=== PATIENT | female | born 1995 | race Two or more races ===

== ENCOUNTER 2018-04-04 17:00 | Emergency (ER) | payer OTHER ==
--- NOTE | 2018-04-04 17:17 | PDOC ---
Rapid Medical Evaluation Chief Complaint: Abscess Boil Time Seen by Provider: 04/04/18 17:15 Medical Evaluation: 04/04/18 17:15 have performed a brief in-person evaluation of this patient. The patient presents with a chief complaint of:abscess to right thigh, Pertinent physical exam findings: pale, tender right upper innner thigh I have ordered the following: nothing The patient will proceed to the ED for further evaluation.
[2018-04-04 17:18] VITALS: BP 122/58; PULSE 60; TEMP 98.4; BMI 30.9
--- NOTE | 2018-04-04 18:17 | PDOC ---
History of Present Illness - General Chief Complaint: Abscess Boil Stated Complaint: Abscess Boil Time Seen by Provider: 04/04/18 17:15 History Source: Patient Exam Limitations: Clinical Condition - History of Present Illness Initial Comments: 04/04/18 18:10 Patient with no significant past medication he present with complaint of recurrent abscesses on different part of the body for 7 months now and now with three-day history of abscess to right thigh area. Patient's was seen in [facility] for symptoms and discharged home on amoxicillin antibiotics. Patient reported right thigh abscess draining. Patient has not seen dermatology for her symptoms or previous abscesses. Patient denies fever, chills. Patient is sexually active with one partner. Patient denies any other symptoms. Timing/Duration: other (3 days) Past History - Past Medical History Allergies/Adverse Reactions: Allergies Allergy/AdvReac Type Severity Reaction Status Date / Time No Known Allergies Allergy Verified 04/04/18 17:17 Home Medications: Ambulatory Orders Cephalexin Monohydrate [Keflex -] 500 mg PO BID 7 Days #14 capsule 04/04/18 Sulfamethoxazole/Trimethoprim [Bactrim Ds -] 1 tab PO BID #14 tablet 04/04/18 COPD: No - Surgical History Appendectomy: No - Immunization History Immunization Up to Date: No - Suicide/Smoking/Psychosocial Hx Smoking History: Never smoked Have you smoked in the past 12 months: No Information on smoking cessation initiated: No Hx Alcohol Use: No Drug/Substance Use Hx: No Review of Systems - Review of Systems Able to Perform ROS?: Yes Is the patient limited Occitan proficient: No Constitutional: No: Chills, Fever HEENTM: No: Symptoms Reported Respiratory: No: Symptoms reported Cardiac (ROS): No: Symptoms Reported ABD/GI: No: Nausea, Vomiting Musculoskeletal: No: Muscle Pain Integumentary: Yes: Lumps (abscess to right inner thigh) All Other Systems: Reviewed and Negative *Physical Exam - Vital Signs Last Vital Signs Temp Pulse Resp BP Pulse Ox 98.4 F 60 18 122/58 L 100 04/04/18 17:15 18 17:15 04/04/18 17:15 04/04/18 17:15 04/04/18 17:15 - Physical Exam Comments: 04/04/18 18:12 GENERAL: Well developed, well nourished. Awake and alert. No acute distress. CARDIOVASCULAR: Regular rate and rhythm. No murmurs, rubs, or gallops. Distal pulses are 2+ and symmetric. PULMONARY: No evidence of respiratory distress. Lungs clear to auscultation bilaterally. No wheezing, rales or rhonchi. ABDOMINAL: Soft. Non-tender. Non-distended. No rebound or guarding. No organomegaly. Normoactive bowel sounds. . SKIN: small 3cm draining abscess to right inner mid-thigh area with mild swelling and erythema. purulent drainage from wound site Warm and dry. Normal capillary refill. No rashes. No jaundice. NEUROLOGICAL: Alert, awake, appropriate. Gait is normal without ataxia. PSYCHIATRIC: Cooperative. Good eye contact. Appropriate mood General Appearance: Yes: Nourished, Appropriately Dressed. No: Apparent Distress Moderate Sedation - Procedure Monitoring Vital Signs: Procedure Monitoring Vital Signs Temperature 98.4 F 04/04/18 17:15 Pulse Rate 60 04/04/18 17:15 Respiratory Rate 18 04/04/18 17:15 Blood Pressure 122/58 L 04/04/18 17:15 O2 Sat by Pulse Oximetry (%) 100 04/04/18 17:15 Medical Decision Making - Medical Decision Making 04/04/18 18:15 Patient with no significant past medication he present with complaint of right thigh pain and abscess. Patient with history of recurrent abscesses axilla patient be treated and intermittent [place]. Exam significant for 3 cm draining abscess to right inner thigh area with mild surrounding erythema. Wound culture of pertinent discharge from abscess obtained. Abscess cleaned with Betadine. Bacitracin applied to abscess in abscess covered with 4 x 4 gauze was pressure dressing. Blood glucose fingerstick ordered and HIV test ordered as per patient request. 04/04/18 19:38 fingerstick glucose 79. HIV neg. 04/06/18 08:34 *DC/Admit/Observation/Transfer Diagnosis at time of Disposition: Abscess of right thigh - Discharge Dispostion Disposition: HOME Condition at time of disposition: Stable Decision to Admit order: No - Prescriptions Prescriptions: Cephalexin Monohydrate [Keflex -] 500 mg PO BID 7 Days #14 capsule Sulfamethoxazole/Trimethoprim [Bactrim Ds -] 1 tab PO BID #14 tablet - Referrals Referrals: Camilo Flores MD [Non Staff, Medical] - - Patient Instructions Printed Discharge Instructions: DI for Incision and Drainage of a Skin Abscess Additional Instructions: Take medication as prescribed for Abscess. apply warm compress to area 2-3times/ day for 5-10mins. Follow-up with referred dermatology - Post Discharge Activity
== END 2018-04-04 20:42 | disposition home or self-care (01) ==
LOC: JERFT 17:00
DX: L02.415 Cutaneous abscess of right lower limb (principal)
CPT/HCPCS: 36415; 82962; 87070; 87186; 87205; 87389; 99281-25

== ENCOUNTER 2018-04-14 11:12 | Emergency (ER) | payer OTHER ==
[2018-04-14 11:32] VITALS: BP 125/72; PULSE 70; TEMP 97.9; BMI 30.9
--- NOTE | 2018-04-14 12:20 | PDOC ---
History of Present Illness - General Chief Complaint: Abscess Boil Stated Complaint: REVISIT, FOLLOW UP Time Seen by Provider: 04/14/18 11:41 History Source: Patient Exam Limitations: No Limitations Past History - Past Medical History Allergies/Adverse Reactions: Allergies Allergy/AdvReac Type Severity Reaction Status Date / Time No Known Allergies Allergy Verified 04/04/18 17:17 Home Medications: Ambulatory Orders Cephalexin Monohydrate [Keflex -] 500 mg PO BID 7 Days #14 capsule 04/04/18 Sulfamethoxazole/Trimethoprim [Bactrim Ds -] 1 tab PO BID #14 tablet 04/04/18 Chlorhexidin/Isopropyl Alcohol [Dynahex 2% Liquid] 240 ml TP DAILY #1 liquid Ibuprofen [Motrin -] 600 mg PO QID PRN #28 tablet 04/14/18 Sulfamethoxazole/Trimethoprim [Bactrim Ds -] 1 tab PO BID #20 tablet 04/14/18 COPD: No - Surgical History Appendectomy: No - Immunization History Immunization Up to Date: No - Suicide/Smoking/Psychosocial Hx Smoking History: Never smoked Have you smoked in the past 12 months: No Hx Alcohol Use: No Drug/Substance Use Hx: No *Physical Exam - Vital Signs Last Vital Signs Temp Pulse Resp BP Pulse Ox 97.9 F 70 18 125/72 97 04/14/18 11:29 04/14/18 11:29 04/14/18 11:29 04/14/18 11:29 04/14/18 11:29 - Physical Exam General Appearance: No: Apparent Distress Integumentary: positive: Other (3 abscesses noted; 2 along R inner thigh and 1 along L inner thigh; all of them are already draining with pustular drainage, some surrounding erythema noted; no streaking) Moderate Sedation - Procedure Monitoring Vital Signs: Procedure Monitoring Vital Signs Temperature 97.9 F 04/14/18 11:29 Pulse Rate 70 04/14/18 11:29 Respiratory Rate 18 04/14/18 11:29 Blood Pressure 125/72 04/14/18 11:29 O2 Sat by Pulse Oximetry (%) 97 04/14/18 11:29 Medical Decision Making - Medical Decision Making 22 y/o F hx of recurrent abscesses x 4 months (has had them on breasts, B/L armpits, abdomen and thighs) presents wih abscess between thighs x 1 week. Was seen on 04/04 for similar complaint, had wound cx which grew MRSA. Patient was prescribed Keflex and Bactrim which she states did not help with her abscesses. Culture was sensitive to Bactrim. Mentions having subjective fever last night. Noted with multiple abscesses between thighs, already draining Site was cleaned with betadine Patient has appointment with superintendent maintenance on 04/19/17 Will also refer to ID; send another rx for Bactrim (longer course for 10 days), Chlorhexidine wash 04/14/18 12:16 *DC/Admit/Observation/Transfer Diagnosis at time of Disposition: Abscess - Discharge Dispostion Disposition: HOME Condition at time of disposition: Good Decision to Admit order: No - Prescriptions Prescriptions: Chlorhexidin/Isopropyl Alcohol [Dynahex 2% Liquid] 240 ml TP DAILY #1 liquid Ibuprofen [Motrin -] 600 mg PO QID PRN #28 tablet PRN Reason: Pain Sulfamethoxazole/Trimethoprim [Bactrim Ds -] 1 tab PO BID #20 tablet - Referrals Referrals: Margareth Monroy MD [Staff Physician] - Call tomorrow - Patient Instructions Printed Discharge Instructions: DI for Skin Abscess Additional Instructions: Thank you for choosing [facility]. It was a pleasure taking care of you. You may take Motrin 600 mg every 4 hours by mouth as needed for mild to moderate pain. Take Motrin with food. Apply warm compresses to abscess to allow them to continue to drain. Apply chlorhexidine wash daily Take prescribed Bactrim Follow-up with superintendent maintenance as scheduled Also make appointment with infectious disease for follow-up. Return to the Emergency Department if your symptoms worsen or persist or other concerning symptoms. - Post Discharge Activity
== END 2018-04-14 12:29 | disposition home or self-care (01) ==
LOC: JERFT 11:12
DX: L02.416 Cutaneous abscess of left lower limb (principal); L02.415 Cutaneous abscess of right lower limb; Z86.14 Personal history of Methicillin resistant Staphylococcus aureus infection
CPT/HCPCS: 99281-25

== ENCOUNTER 2018-06-27 21:45 | Emergency (ER) | payer OTHER ==
[2018-06-27 21:53] VITALS: BP 120/57; PULSE 66; TEMP 98; BMI 31.6
[2018-06-27 23:23] LABS: URINE APPEARANCE CLOUDY; URINE BILIRUBIN NEGATIVE (<2.0 mg/dL); URINE COLOR YELLOW; URINE GLUCOSE (UA) NEGATIVE (NEGATIVE); URINE KETONE NEGATIVE (NEGATIVE); URINE LEUK ESTERASE 1+ (NEGATIVE); URINE NITRITE NEGATIVE (NEGATIVE); URINE PROTEIN NEGATIVE (NEGATIVE); URINE UROBILINOGEN NEGATIVE mg/dL (0.2-1.0)
--- NOTE | 2018-06-27 23:24 | PDOC ---
*Physical Exam - Vital Signs Last Vital Signs Temp Pulse Resp BP Pulse Ox 98.0 F 66 16 120/57 L 100 06/27/18 21:51 06/27/18 21:51 06/27/18 21:51 06/27/18 21:51 06/27/18 21:51 Medical Decision Making - Medical Decision Making 06/27/18 23:24 Patient seen by the advanced practice provider under my direct supervision. Ancillary testing reviewed as necessary. I agree with plan as outlined by the advanced practice provider. *DC/Admit/Observation/Transfer Diagnosis at time of Disposition: Sprain of foot, right Qualifiers: Encounter type: initial encounter Qualified Code(s): S93.601A - Unspecified sprain of right foot, initial encounter - Discharge Dispostion Disposition: HOME - Prescriptions Prescriptions: Ibuprofen 600 mg PO QID PRN #20 tablet PRN Reason: Pain - Referrals Referrals: Ernesto Wagner DPM [Staff Physician] - Call tomorrow Clay Figueroa MD [Staff Physician] - Call tomorrow - Patient Instructions Printed Discharge Instructions: DI for Foot Sprain Additional Instructions: apply ice to the area elevate your foot as much as possible. take ibuprofen every 6 hours as needed for pain follow up with an orthopedic doctor as soon as possible. - Post Discharge Activity Forms/Work/School Notes: Back to Work
[2018-06-27 23:35] LABS: EPI CELLS MODERATE /HPF (FEW); URINE BACTERIA FEW /hpf (NONE SEEN); YEAST RARE
[2018-06-27 23:39] LABS: HCG,QUALITATIVE URINE NEGATIVE
--- NOTE | 2018-06-28 00:19 | PDOC ---
History of Present Illness - General Chief Complaint: Pain Stated Complaint: HEAVY OBJECT FELLING ON FOOT Time Seen by Provider: 06/27/18 23:19 History Source: Patient - History of Present Illness Initial Comments: 06/28/18 00:13 22 year old female c/o rught foot pain and right toe pain after a heavy object fell on her foot prior to arrival. patient has pain to the right 3-5 metatarsal area and 3rd, 4th and 5th toe. slight swelling noted. Past History - Past Medical History Allergies/Adverse Reactions: Allergies Allergy/AdvReac Type Severity Reaction Status Date / Time No Known Allergies Allergy Verified 06/27/18 21:52 Home Medications: Ambulatory Orders Cephalexin Monohydrate [Keflex -] 500 mg PO BID 7 Days #14 capsule 04/04/18 Sulfamethoxazole/Trimethoprim [Bactrim Ds -] 1 tab PO BID #14 tablet 04/04/18 Chlorhexidin/Isopropyl Alcohol [Dynahex 2% Liquid] 240 ml TP DAILY #1 liquid Ibuprofen [Motrin -] 600 mg PO QID PRN #28 tablet 04/14/18 Sulfamethoxazole/Trimethoprim [Bactrim Ds -] 1 tab PO BID #20 tablet 04/14/18 Ibuprofen 600 mg PO QID PRN #20 tablet 06/28/18 COPD: No - Surgical History Appendectomy: No - Immunization History Immunization Up to Date: No - Suicide/Smoking/Psychosocial Hx Smoking History: Never smoked Have you smoked in the past 12 months: No Information on smoking cessation initiated: No Hx Alcohol Use: No Drug/Substance Use Hx: No Review of Systems - Review of Systems Able to Perform ROS?: Yes Is the patient limited Tajik proficient: No Musculoskeletal: Yes: Other (foot pain) *Physical Exam - Vital Signs Last Vital Signs Temp Pulse Resp BP Pulse Ox 98.0 F 66 16 120/57 L 100 06/27/18 21:51 06/27/18 21:51 06/27/18 21:51 06/27/18 21:51 06/27/18 21:51 - Physical Exam General Appearance: Yes: Appropriately Dressed Musculoskeletal: positive: Normal Inspection Extremity: positive: Normal Capillary Refill, Normal Inspection, Normal Range of Motion, Other (slight swelling to right foot) Integumentary: positive: Normal Color, Dry, Warm Neurologic: positive: Fully Oriented, Alert Moderate Sedation - Procedure Monitoring Vital Signs: Procedure Monitoring Vital Signs Temperature 98.0 F 06/27/18 21:51 Pulse Rate 66 06/27/18 21:51 Respiratory Rate 16 06/27/18 21:51 Blood Pressure 120/57 L 06/27/18 21:51 O2 Sat by Pulse Oximetry (%) 100 06/27/18 21:51 ED Treatment Course - ADDITIONAL ORDERS Additional order review: Laboratory Results 06/27/18 23:11 Urine Color Yellow Urine Appearance Cloudy Urine pH 6.0 Ur Specific Leon 1.025 Urine Protein Negative Urine Glucose (UA) Negative Urine Ketones Negative Urine Blood Negative Urine Nitrite Negative Urine Bilirubin Negative Urine Urobilinogen Negative Ur Leukocyte Esterase 1+ H Urine WBC (Auto) 6 Urine RBC (Auto) None Ur Epithelial Cells Moderate Urine Bacteria Few Urine Yeast Rare Urine HCG, Qual Negative - RADIOLOGY Radiology Studies Ordered: Category Date Time Status ANKLE & FOOT-RIGHT* [RAD] Stat Radiology 06/27/18 23:14 Taken *DC/Admit/Observation/Transfer Diagnosis at time of Disposition: Sprain of foot, right Qualifiers: Encounter type: initial encounter Qualified Code(s): S93.601A - Unspecified sprain of right foot, initial encounter - Discharge Dispostion Disposition: HOME - Prescriptions Prescriptions: Ibuprofen 600 mg PO QID PRN #20 tablet PRN Reason: Pain - Referrals Referrals: Ernesto Wagner DPM [Staff Physician] - Call tomorrow Clay Figueroa MD [Staff Physician] - Call tomorrow - Patient Instructions Printed Discharge Instructions: DI for Foot Sprain Additional Instructions: apply ice to the area elevate your foot as much as possible. take ibuprofen every 6 hours as needed for pain follow up with an orthopedic doctor as soon as possible. - Post Discharge Activity Forms/Work/School Notes: Back to Work
[2018-06-28] MEDS ORDERED: IBUPROFEN 600 MG TABLET (FP) PO ONE (00:20)
== END 2018-06-28 01:11 | disposition home or self-care (01) ==
LOC: JER 21:45 → JERFT 21:45 → JER 06-28 01:11
DX: S93.601A Unspecified sprain of right foot, initial encounter (principal); W22.8XXA Striking against or struck by other objects, initial encounter; Y93.89 Activity, other specified; Y92.512 Supermarket, store or market as the place of occurrence of the external cause; Y99.0 Civilian activity done for income or pay
CPT/HCPCS: 73610-TC-RT-FY; 73630-TC-RT-FY; 81003; 81015; 84703; 99281-25

== ENCOUNTER 2020-01-01 13:59 | Emergency (ER) | payer OTHER ==
[2020-01-01] MEDS ORDERED: METOCLOPRAMIDE HCL INJECTION 10 MG/2 ML VIAL IVPB ONE (14:06)
[2020-01-01] MEDS ORDERED: SODIUM CHLORIDE 0.9% 500 ML INFUS.BAG IV ONE (14:06)
--- NOTE | 2020-01-01 14:06 | PDOC ---
Rapid Medical Evaluation Time Seen by Provider: 01/01/20 14:00 Medical Evaluation: Allergies Allergy/AdvReac Type Severity Reaction Status Date / Time No Known Allergies Allergy Verified 01/01/20 14:01 01/01/20 14:02 I performed a brief in-person evaluation of this patient. Pt is a 24 y/o female with complaint of headache on the right side of her head, neck ache and right upper extremity pain. Pt states she felt feverish yesterday. No COVID contacts. No recent travel. Pt took Advil with little relief. Pertinent physical exam findings: Speaking in full sentences, no neck rigidity, supple I have ordered the following: saline lock, fluids, reglan, labs deferred to treating provider Patient to proceed to ED for further evaluation. 01/01/20 14:06 Discharge Disposition - Diagnosis Headache - Referrals - Patient Instructions - Post Discharge Activity
[2020-01-01 14:08] VITALS: BP 127/84; PULSE 61; TEMP 99; BMI 33.5
[2020-01-01] MEDS ORDERED: METOCLOPRAMIDE HCL INJECTION 10 MG/2 ML VIAL ONE (14:31)
[2020-01-01] MEDS ORDERED: KETOROLAC TROMETHAMINE 60 MG/2 ML VIAL IM ONE (14:35)
[2020-01-01] MEDS ORDERED: KETOROLAC TROMETHAMINE 60 MG/2 ML VIAL ONE (14:37)
--- NOTE | 2020-01-01 15:03 | PDOC ---
History of Present Illness - General Chief Complaint: Head/Neck problem Stated Complaint: HEADACHE,NECK PAIN Time Seen by Provider: 01/01/20 14:00 - History of Present Illness Initial Comments: 01/01/20 15:00 24-year-old female without comorbidities assures me there is no chance of presents for evaluation of right-sided neck pain with right upper extremity radicular symptoms x1 day no systemic symptoms. Past History - Medical History Allergies/Adverse Reactions: Allergies Allergy/AdvReac Type Severity Reaction Status Date / Time No Known Allergies Allergy Verified 01/01/20 14:01 Home Medications: Ambulatory Orders Cephalexin Monohydrate [Keflex -] 500 mg PO BID 7 Days #14 capsule 04/04/18 Sulfamethoxazole/Trimethoprim [Bactrim Ds -] 1 tab PO BID #14 tablet 04/04/18 Chlorhexidin/Isopropyl Alcohol [Dynahex 2% Liquid] 240 ml TP DAILY #1 liquid 04/14/18 Ibuprofen [Motrin -] 600 mg PO QID PRN #28 tablet 04/14/18 Sulfamethoxazole/Trimethoprim [Bactrim Ds -] 1 tab PO BID #20 tablet 04/14/18 Ibuprofen 600 mg PO QID PRN #20 tablet 06/28/18 Cyclobenzaprine HCl [Flexeril 10 mg] 10 mg PO HS PRN #10 tablet 01/01/20 Ibuprofen [Motrin -] 600 mg PO TID #30 tablet 01/01/20 COPD: No - Surgical History Appendectomy: No - Reproductive History Is Patient Now?: No - Immunization History Immunization Up to Date: No - Psycho-Social/Smoking History Smoking History: Never smoked Have you smoked in the past 12 months: No - Substance Abuse Hx (Audit-C & DAST Scrn) How often the patient has a drink containing alcohol: Never Score: In Men: 4 or > Positive; In Women: 3 or > Positive: 0 Screen Result (Pos requires Nsg. Audit-10AR): Negative In the last yr the pt used illegal drug/Rx for NonMed reason: No Score: Yes response is considered Positive: 0 Screen Result (Positive result requires Nsg. DAST-10): Negative Review of Systems - Review of Systems Constitutional: No: Fever Respiratory: No: Cough Musculoskeletal: Yes: Neck Pain Neurological: Yes: Headache *Physical Exam - Vital Signs Last Vital Signs Temp Pulse Resp BP Pulse Ox 99 F 61 18 127/84 100 01/01/20 14:01 01/01/20 14:01 01/01/20 14:01 01/01/20 14:01 01/01/20 14:01 - Physical Exam 01/01/20 15:01 Cervical spine skin color and temperature normal range of motion is slightly limited. There is no midline tenderness. Mild bilateral paracervical musculature spasm and tenderness. 5 out of 5 strength bilateral upper extremities without gross sensorimotor deficits neurovascular intact. Spurling maneuver is positive on the right negative on the left ED Treatment Course - Medications Given in the ED: ED Medications Discontinued Medications Generic Name Dose Route Start Last Admin Trade Name Freq PRN Reason Stop Dose Admin Diphenhydramine HCl 25 mg 01/01/20 14:26 01/01/20 14:36 Benadryl Injection - IVPUSH 01/01/20 14:27 Not Given ONCE ONE Ketorolac Tromethamine 60 mg 01/01/20 14:35 01/01/20 14:37 Toradol Injection - IM 01/01/20 14:36 60 mg ONCE ONE Administration Metoclopramide HCl 10 mg 01/01/20 14:06 01/01/20 14:36 Reglan Injection - IVPB 01/01/20 14:07 Not Given ONCE ONE Sodium Chloride 1,000 ml 01/01/20 14:06 01/01/20 14:36 Normal Saline - IV 01/01/20 14:07 Not Given ONCE ONE Medical Decision Making - Medical Decision Making 01/01/20 15:01 Reproducible cervical radiculopathy helped with Toradol in the emergency room Flexeril and Motrin at home follow-up with orthopedic surgery for further evaluation I have reviewed the pathophysiology with the patient. They are in agreement w ith the treatment plan all questions were answered to their satisfaction. Understanding for follow-up without fail was also conveyed to the patient. Again they are in agreement. Discharge - Discharge Information Problems reviewed: Yes Clinical Impression/Diagnosis: Headache, Cervical radiculopathy Condition: Stable Disposition: HOME - Admission No - Additional Discharge Information Prescriptions: Cyclobenzaprine HCl [Flexeril 10 mg] 10 mg PO HS PRN #10 tablet PRN Reason: Muscle Spasms Ibuprofen [Motrin -] 600 mg PO TID #30 tablet - Follow up/Referral Referrals: Rishi Todd MD, FAANS [Staff Physician] - - Patient Discharge Instructions Additional Instructions: Please take the Flexeril as directed. 1 tablet before bed. The medicine will make you sleepy. Do not start the Motrin until tomorrow. You may take Tylenol until then. You were given an injection of a long-acting inflammatory in the emergency room. Motrin is an anti-inflammatory and this can potentially cause you harm if you start this medication too early. Again please start the Motrin tomorrow at around 3 PM. Return to the emergency room for worsening symptoms and without fail follow-up with neurosurgery in 1 to 2 days for further evaluation and treatment options. - Post Discharge Activity
== END 2020-01-01 15:41 | disposition home or self-care (01) ==
LOC: JERFT 13:59 → JER 13:59 → JERFT 15:41
PROC: 3E0233Z Introduction of Anti-inflammatory into Muscle, Percutaneous Approach (ICD-10-PCS; principal; 2020-01-01)
DX: R51 Headache (principal)
CPT/HCPCS: 99284-25

== ENCOUNTER 2024-12-16 07:11 | Inpatient (IN) | payer OTHER ==
[2024-12-16] MEDS: LACTATED RINGERS SOLUTION 1,000 ML/1,000 ML INFUS.BAG IV SCH (08:00)
[2024-12-16 08:29] LABS: ABSOLUTE IMMATURE GRANULOCYTES 0.12 x10^3/uL (0.0-0.031); BASOPHILS # 0.03 x10^3/uL (0.01-0.08); EOSINOPHIL % 0.5 % (0.7-5.8); EOSINOPHILS # 0.05 x10^3/uL (0.04-0.36); MCHC 33.9 g/dl (32.2-35.5); MEAN CELL VOLUME 90.0 fl (79.4-94.8); MEAN PLT VOLUME 10.4 fl (9.4-12.3); MONOCYTE # 0.92 x10^3/uL (0.24-0.86); MONOCYTE % 9.2 % (4.7-12.5); RDW 13.2 % (12.1-16.8)
[2024-12-16 08:32] LABS: INR 0.93 (0.83-1.09); PROTHROMBIN TIME (PATIENT) 10.2 SEC (9.7-13.0)
[2024-12-16 08:35] LABS: ACTIVATED PTT 29.8 SECONDS (25.2-36.5)
[2024-12-16 08:44] VITALS: BMI 40.8
[2024-12-16 08:51] LABS: GLUCOSE,RANDOM 111.0 mg/dL (74-106); TOT PROT 7.4 g/dl (6.4-8.2)
[2024-12-16 08:52] LABS: CO2 16.0 mmol/L (21-32)
[2024-12-16 08:54] LABS: ALK PHOS 206.0 U/L (40-150)
[2024-12-16 08:56] LABS: SGOT/AST 28.0 U/L (5-34); SGPT/ALT 20.0 U/L (0-55)
[2024-12-16 08:57] LABS: CREATININE 0.66 mg/dL (0.55-1.3)
[2024-12-16] MEDS ORDERED: BUTORPHANOL TARTRATE 2 MG/ML VIAL IVPB PRN (09:09)
[2024-12-16] MEDS ORDERED: PENICILLIN G POTASSIUM 5,000,000 UNIT/250 ML BAG IVPB ONE (09:35)
[2024-12-16] MEDS ORDERED: PROMETHAZINE HCL 25 MG/1 ML VIAL IVPB PRN (09:38)
[2024-12-16] MEDS: PENICILLIN G POTASSIUM 5,000,000 (5Mm) UNIT VIAL IVPB ONE (09:40)
[2024-12-16] MEDS: PENICILLIN G POTASSIUM 2,500,000 UNIT in SODIUM CHLORIDE 100 ML IVPB SCH (13:32)
[2024-12-16] MEDS ORDERED: PENICILLIN G POTASSIUM 5,000,000 (5Mm) UNIT VIAL IVPB SCH (14:00)
[2024-12-16] MEDS ORDERED: PENICILLIN G POTASSIUM 2,500,000 UNIT in SODIUM CHLORIDE 250 ML IVPB SCH (14:00)
[2024-12-16] MEDS: MISOPROSTOL 25 MCG TABLET (COMPOUNDED BY PHARMACY) BUC SCH (15:28)
[2024-12-17] MEDS ORDERED: FENTANYL/BUPIVACAINE/NS/PF - PCEA - 50 ML DISP.SYRIN EP ONE ×3 (02:05→10:44)
[2024-12-17] MEDS ORDERED: NALOXONE HCL 0.4 MG/ML VIAL IVPUSH PRN (02:11)
[2024-12-17] MEDS ORDERED: BUPIVACAINE HCL/PF 0.25% (2.5MG/ML) 10 ML VIAL ONE (02:14)
[2024-12-17] MEDS: FENTANYL/BUPIVACAINE/NS/PF - PCEA - 50 ML DISP.SYRIN EP SCH (02:30)
[2024-12-17] MEDS ORDERED: OXYTOCIN 30 UNITS in 0.9% NS 30 UNIT/500 ML INFUS.BAG IVPB ONE (09:13)
[2024-12-17] MEDS: OXYTOCIN 30 UNITS in 0.9% NS 30 UNIT/500 ML INFUS.BAG IVPB SCH (09:18)
[2024-12-17] MEDS ORDERED: TERBUTALINE SULFATE 1 MG/1 ML VIAL SQ ONE (12:37)
[2024-12-17] MEDS: TERBUTALINE SULFATE 1 MG/1 ML VIAL SQ ONE (12:45)
[2024-12-17] MEDS ORDERED: AZITHROMYCIN IVPB 500 MG/250 ML BAG IVPB ONE (13:24)
[2024-12-17] MEDS ORDERED: FENTANYL CITRATE/PF 50 MCG/ML VIAL ONE (13:30)
[2024-12-17] MEDS ORDERED: morphine SULFATE/PF 1 MG/2 ML (2cc Syringe - QUVA) ONE (13:30)
[2024-12-17] MEDS ORDERED: OXYTOCIN 10 UNITS/ML VIAL ONE (13:32)
[2024-12-17] MEDS ORDERED: DEXAMETHASONE SOD PHOSPHATE 4 MG/1 ML VIAL ONE (13:32)
[2024-12-17] MEDS ORDERED: KETOROLAC TROMETHAMINE 30 MG/1 ML VIAL ONE (13:32)
[2024-12-17] MEDS ORDERED: ONDANSETRON 4 MG/2 ML VIAL ONE (13:32)
[2024-12-17] MEDS ORDERED: METOCLOPRAMIDE HCL INJECTION 10 MG/2 ML VIAL ONE (13:32)
[2024-12-17] MEDS ORDERED: LIDOCAINE HCL/PF 2% SDV 5ML VIAL ONE ×2 (13:32→13:47)
[2024-12-17 14:25] LABS: CORD BASE EXCESS -4.7 mmol/L (0-2); CORD HCO3 22.5 mmHg (20-29); CORD PCO2 49.1 mmHg (30-78); CORD pH 7.278 (7.14-7.44)
[2024-12-17 14:27] LABS: CORD BASE EXCESS -5.400 mmol/L (0-2); CORD HCO3 23.8 mmHg (20-29); CORD PCO2 61.8 mmHg (30-78); CORD pH 7.204 (7.14-7.44)
[2024-12-17] MEDS ORDERED: OXYTOCIN 20 UNITS in 0.9% NS 20 UNIT/1,000 ML INFUS.BAG IV ONE ×2 (14:49→17:15)
[2024-12-17] MEDS: OXYTOCIN 20 UNITS in 0.9% NS 20 UNIT/1,000 ML INFUS.BAG IV SCH (17:15)
[2024-12-17] MEDS: METHYLERGONOVINE MALEATE 0.2 MG/1 ML AMP IM PRN (21:05)
[2024-12-17] MEDS: FERROUS SO4 325 MG TABLET (FP) PO SCH (22:00)
[2024-12-18] MEDS: IBUPROFEN 800 MG/8 ML IJ IVPB PRN (00:26)
[2024-12-18 08:07] LABS: ABSOLUTE IMMATURE GRANULOCYTES 0.10 x10^3/uL (0.0-0.031); BASOPHILS # 0.03 x10^3/uL (0.01-0.08); EOSINOPHIL % 0.0 % (0.7-5.8); EOSINOPHILS # 0.00 x10^3/uL (0.04-0.36); MCHC 32.9 g/dl (32.2-35.5); MEAN CELL VOLUME 91.9 fl (79.4-94.8); MEAN PLT VOLUME 9.8 fl (9.4-12.3); MONOCYTE # 1.01 x10^3/uL (0.24-0.86); MONOCYTE % 6.3 % (4.7-12.5); RDW 13.5 % (12.1-16.8)
[2024-12-18] MEDS: ENOXAPARIN NA (PORCINE) 40 MG/0.4 ML DISP.SYRIN SQ SCH (09:47)
[2024-12-18] MEDS: PRENATAL VITAMINS W/ FOLIC ACID TABLET (FP) PO SCH (09:47)
[2024-12-18] MEDS: IBUPROFEN 600 MG TABLET (FP) PO PRN (09:47)
[2024-12-18] MEDS: SIMETHICONE 80 MG TAB.CHEW (FP) PO PRN (17:53)
[2024-12-18] MEDS: BISACODYL 10 MG SUPP.RECT RC PRN (21:19)
[2024-12-19] MEDS: ACETAMINOPHEN 325 MG TABLET (FP) PO PRN (13:47)
[2024-12-20 07:40] LABS: MCHC 32.9 g/dl (32.2-35.5); MEAN CELL VOLUME 92.6 fl (79.4-94.8); MEAN PLT VOLUME 9.7 fl (9.4-12.3); RDW 13.7 % (12.1-16.8)
[2024-12-20 21:17] VITALS: RESP 18
[2024-12-21 09:42] VITALS: BP 134/86; PULSE 83; TEMP 98.1
== END 2024-12-21 13:15 | disposition home or self-care (01) | DRG 540 ==
LOC: JLDR 07:11 → J3W 12-17 17:21
PROVIDERS: ADMIT Obstetrics & Gynecology; ATTEND Obstetrics & Gynecology
PROC: 10D00Z1 Extraction of Products of Conception, Low, Open Approach (ICD-10-PCS; principal; 2024-12-19)
DX: O76 Abnormality in fetal heart rate and rhythm complicating labor and delivery (principal); O62.1 Secondary uterine inertia; Z3A.39 39 weeks gestation of pregnancy; Z37.0 Single live birth
CPT/HCPCS: 36415; 36600; 80053; 82803; 85025; 85610; 85730; 86780; 86850; 86900; 86901; 87081; 88307-TC